=== PATIENT | male | born 1935 | race Caucasian/White ===

== ENCOUNTER 2018-07-03 23:08 | Observation (INO) | payer OTHER ==
[2018-07-03] MEDS ORDERED: NS 1,000 ML IV ONE (23:16)
--- NOTE | 2018-07-03 23:20 | EDPHY ---
H & P Time Seen by Provider: 07/03/18 23:19 HPI/ROS: HPI CHIEF COMPLAINT: Syncope, confusion HISTORY OF PRESENT ILLNESS: Very pleasant 82-year-old male, presents emergency room from his private residence after he may have had a syncopal episode tonight. Patient was on the toilet and called for help when his arrived at the bathroom he was on the ground. This was unwitnessed fall. The patient is unsure exactly what happened. Patient arrived to the emergency room he is alert and orient x1. He cannot tell me his full date or his full address. Unclear at this time of this is his baseline is no family is here. Is reported by EMS that he has been having some recent increase in falls. Patient arrives emergency room without complaint. Denies chest pain or shortness of breath. Past Medical History: Spinal stenosis, hypertension Past Surgical History: No recent surgery Social History: Lives locally private residence with . Family History: Noncontributory ROS REVIEW OF SYSTEMS: Limited due to patient's mental state at this time. Exam Constitutional confused, elderly, nontoxic, triage nursing summary reviewed, vital signs reviewed, awake/alert. Eyes normal conjunctivae and sclera, EOMI, PERRLA. HENT head and neck exam no evidence of trauma. normal inspection, atraumatic, moist mucus membranes, no epistaxis, neck supple/ no meningismus, no raccoon eyes. Respiratory clear to auscultation bilaterally, normal breath sounds, no respiratory distress, no wheezing. Cardiovascular rate normal, regular rhythm, no murmur, no edema, distal pulses normal. Gastrointestinal soft, non-tender, no rebound, no guarding, normal bowel sounds, no distension, no pulsatile mass. Genitourinary no CVA tenderness. Musculoskeletal no midline vertebral tenderness, full range of motion, no calf swelling, no tenderness of extremities, no meningismus, good pulses, neurovascularly intact. Skin pink, warm, & dry, no rash, skin atraumatic. Neurologic awake and alert however oriented x1. moves all 4 extremities equally, motor intact, sensory intact, CN II-XII intact, normal cerebellar, normal vision, normal speech. Psychiatric normal mood/affect. Heme/Lymph/Immune no lymphadenopathy. Differential Diagnosis: Includes but is not limited to in a particular order syncope, dehydration, electrolyte disturbance, ACS, subdural, intracranial bleed , CVA Medical Decision Making: Plan for this patient IV establishment IV fluid bolus , check orthostatics, EKG, chest x-ray, CT scan of the head, and re-evaluate. Re-evaluation: EKG interpretation by me on record in [employer] system. Impression time of EKG 2319, sinus rhythm rate of [address] scan head without contrast negative for bleed atrophy present. Chest x-ray shows haziness in bilateral lower lobes. However the patient does not have any pneumonia symptoms. No fever no hypoxia no cough. Due to the confusion, and unwitnessed potential syncopal event will admit to the hospitalist service. Patient agrees for admission. agrees for admission. Possible cognitive decline/dementia. Spoke with Dr. Richardson agrees to admit Source: Patient, EMS Constitutional: Initial Vital Signs Temperature (C) 36.6 C 07/03/18 23:18 Heart Rate 63 07/03/18 23:18 Respiratory Rate 16 07/03/18 23:18 Blood Pressure 146/104 H 07/03/18 23:18 O2 Sat (%) 96 07/03/18 23:18 O2 Delivery Mode Room Air Allergies/Adverse Reactions: No Known Allergies Allergy (Unverified 07/03/18 23:17) Home Medications: Medication Instructions Recorded Levothyroxine [Synthroid 100 mcg 100 mcg PO DAILY06 07/03/18 (*)] amLODIPine BESYLATE [Norvasc 5 mg 5 mg PO DAILY 07/03/18 (*)] Medical Decision Making - Data Points Laboratory Results: Laboratory Results 07/03/18 23:12 07/03/18 23:10 Medications Given: Discontinued Medications Enoxaparin Sodium (Lovenox) 40 mg SC DAILY [facility] Stop: 12/31/18 08:59 Last Admin: 07/04/18 09:39 Dose: 40 mg Sodium Chloride (Ns) 1,000 mls @ 0 mls/hr IV EDNOW ONE; Wide Open PRN Reason: Protocol Stop: 07/03/18 23:17 Last Admin: 07/03/18 23:44 Dose: 1,000 mls Sodium Chloride (Ns) 1,000 mls @ 75 mls/hr IV CONT RABIA Stop: 12/31/18 00:44 Last Admin: 07/04/18 05:37 Dose: 1,000 mls Point of Care Test Results: Chemistry 07/03/18 23:17 POC Troponin I 0.00 ng/mL ng/mL (0.00-0.08) Departure - Departure Disposition: [facility] Inpatient Acute Clinical Impression: Dehydration, Syncope Condition: Good
[2018-07-03 23:22] LABS: PLATELET COUNT 315 10^3/uL (150-400)
[2018-07-04 00:04] LABS: INR 0.95 (0.83-1.16); PROTIME(PATIENT) 12.9 SEC (12.0-15.0)
[2018-07-04] MEDS ORDERED: ONDANSETRON DISINTEGRATING 4 MG TAB PO PRN (00:32)
[2018-07-04] MEDS ORDERED: ACETAMINOPHEN 325 MG TAB PO PRN (00:32)
[2018-07-04] MEDS ORDERED: ONDANSETRON 4 MG/2 ML VIAL IVP PRN (00:32)
[2018-07-04] MEDS ORDERED: NS 1,000 ML IV SCH (00:45)
--- NOTE | 2018-07-04 00:59 | PDGENHP ---
History and Physical - Chief Complaint Syncope - History of Present Illness Source-a very pleasant 82-year-old gentleman with past medical history significant for HTN, spinal stenosis, hypothyroidism who presents emergency department via EMS this evening following a syncopal episode in the bathroom. Patient reports that he was trying to get up off the toilet felt a little bit lightheaded and then everything went black. He was on the ground unable to get up. He was crying out for help in his got out of bed and found the patient on the ground confused and slightly wright in color. She was unable to help the patient get up and so EMS was called. No witnessed seizure-type activity. No no urinary incontinence. Patient continued to have some confusion. History Information - Allergies/Home Medication List Allergies/Adverse Reactions: No Known Allergies Allergy (Unverified 07/03/18 23:17) Home Medications: Synthroid 07/03/18 [Last Taken Unknown] amLODIPine BESYLATE 07/03/18 [Last Taken Unknown] I have personally reviewed and updated: family history, medical history, social history, surgical history - Past Medical History Additional medical history: Benign essential HTN, spinal stenosis, hypothyroidism, progressive memory deficit (reported to ED provider by family.) - Surgical History Additional surgical history: Colonoscopy, tonsillectomy/adenoidectomy. - Family History Additional family history: Dementia, emphysema - Social History Smoking Status: Never smoked Alcohol Use: None Drug Use: None Additional social history: Patient is for almost 60 years. Lives with his in current [place] home for the last 30 years. Cor status-full. Review of Systems Review of Systems: ROS: 10pt was reviewed & negative except for what was stated in HPI & below Constitutional: Reports: no symptoms. Denies: chills, fever EENMT: Reports: other (Wears glasses. No acute changes in vision. Patient reports he occasionally chokes on food but nothing recently.). Denies: blurred vision, sore throat Cardiac: Reports: no symptoms Respiratory: Reports: no symptoms. Denies: cough, shortness of breath Gastrointestinal: Reports: no symptoms Genitourinary: Reports: other (Nocturia. The patient reports occasional incomplete bladder emptying.) Muscolosketal: Reports: back pain, joint pain (Knees) Skin: Reports: no symptoms Neurological: Reports: tingling (Bilateral lower feet), weakness (Generalized) . Denies: emotional problems, headache, tremors Hematologic/Lymphatic: Reports: no symptoms Physical Exam Physical Exam: Selected Entries 07/03/18 07/03/18 23:18 23:22 Blood Pressure Automatic Method Heart Rate 63 Heart Rate [ 63 Sitting] Heart Rate [ 78 Standing] Heart Rate [ 62 Supine] Respiratory 16 Rate O2 Sat (%) 96 Temperature (C) 36.6 C Blood Pressure 146/104 H Blood Pressure 146/104 H [Sitting] Blood Pressure 112/73 [Standing] Blood Pressure 126/66 H [Supine] Mean Arterial 118 H Pressure (MAP) O2 Delivery Room Air Mode Blood Pressure Right Source [Sitting Upper ] Arm Blood Pressure Right Source [ Upper Standing] Arm Blood Pressure Left Source [Supine] Right Upper Arm Temperature Oral Source Heart Rate Automatic Source [Sitting ] Heart Rate Automatic Source [ Standing] Heart Rate Automatic Source [Supine] Temp Pulse Resp BP Pulse Ox 36.6 C 69 18 162/91 H 95 07/03/18 23:18 07/04/18 00:00 07/04/18 00:00 07/04/18 00:00 07/04/18 00:00 Constitutional: no apparent distress, appears nourished, obese, other (NAD. Pleasant elderly frail-appearing gentleman is sitting in [facility].) Eyes: PERRL, anicteric sclera, EOMI, No scleral injection Ears, Nose, Mouth, Throat: moist mucous membranes, other (No nasal discharge.), No poor dentition Cardiovascular: regular rate and rhythym, no murmur, rub, or gallop, edema (1+ pretibial pitting edema bilateral lower extremities.), No tachycardia Peripheral Pulses: 1+: dorsalis-pedis (R), dorsalis-pedis (L) Respiratory: no respiratory distress, no rales or rhonchi, clear to auscultation , No expiratory wheeze, No inspiratory crackles Gastrointestinal: normoactive bowel sounds, soft, non-tender abdomen, no palpable masses, other (Obese abdomen), No distension Genitourinary: no bladder tenderness, No garcia in urethra Skin: warm, normal color, no rashes or abrasions, No rash Musculoskeletal: full muscle strength, no muscle tenderness, generalized weakness (Patient initially was some difficulty sitting up. Requires use of side rails.) Neurologic: AAOx3, sensation intact bilaterally, CN II-XII Intact, other (He moves all extremities. Cerebellar testing intact.), No facial droop Psychiatric: interacting appropriately, not anxious, not encephalopathic, thought process linear, poor memory Lab Data & Imaging Review 07/03/18 23:12 07/03/18 23:10 WBC 11.61 10^3/uL (3.80-9.50) H 07/03/18 23:12 RBC 4.54 10^6/uL (4.40-6.38) 07/03/18 23:12 Hgb 16.1 g/dL (13.7-17.5) 07/03/18 23:12 Hct 44.8 % (40.0-51.0) 07/03/18 23:12 MCV 98.7 fL (81.5-99.8) 07/03/18 23:12 MCH 35.5 pg (27.9-34.1) H 07/03/18 23:12 MCHC 35.9 g/dL (32.4-36.7) 07/03/18 23:12 RDW 11.6 % (11.5-15.2) 07/03/18 23:12 Plt Count 315 10^3/uL (150-400) 07/03/18 23:12 MPV 10.1 fL (8.7-11.7) 07/03/18 23:12 Neut % (Auto) 79.0 % (39.3-74.2) H 07/03/18 23:12 Lymph % (Auto) 9.5 % (15.0-45.0) L 07/03/18 23:12 [place] % (Auto) 9.6 % (4.5-13.0) 07/03/18 23:12 Eos % (Auto) 1.4 % (0.6-7.6) 07/03/18 23:12 Baso % (Auto) 0.2 % (0.3-1.7) L 07/03/18 23:12 Nucleat RBC Rel Count 0.0 % (0.0-0.2) 07/03/18 23:12 Absolute Neuts (auto) 9.18 10^3/uL (1.70-6.50) H 07/03/18 23:12 Absolute Lymphs (auto) 1.10 10^3/uL (1.00-3.00) 07/03/18 23:12 Absolute Monos (auto) 1.11 10^3/uL (0.30-0.80) H 07/03/18 23:12 Absolute Eos (auto) 0.16 10^3/uL (0.03-0.40) 07/03/18 23:12 Absolute Basos (auto) 0.02 10^3/uL (0.02-0.10) 07/03/18 23:12 Absolute Nucleated RBC 0.00 10^3/uL (0-0.01) 07/03/18 23:12 Immature Gran % 0.3 % (0.0-1.1) 07/03/18 23:12 Immature Gran # 0.04 10^3/uL (0.00-0.10) 07/03/18 23:12 PT 12.9 SEC (12.0-15.0) 07/03/18 23:50 INR 0.95 (0.83-1.16) 07/03/18 23:50 APTT 25.8 SEC (23.0-38.0) 07/03/18 23:50 Sodium 131 mEq/L (135-145) L 07/03/18 23:10 Potassium 4.5 mEq/L (3.5-5.2) 07/03/18 23:10 Chloride 99 mEq/L (97-110) 07/03/18 23:10 Carbon Dioxide 20 mEq/l (22-31) L 07/03/18 23:10 Anion Gap 12 mEq/L (6-14) 07/03/18 23:10 BUN 24 mg/dL (7-23) H 07/03/18 23:10 Creatinine 1.1 mg/dL (0.7-1.3) 07/03/18 23:10 Estimated GFR > 60 07/03/18 23:10 Glucose 106 mg/dL (70-100) H 07/03/18 23:10 Calcium 9.5 mg/dL (8.5-10.4) 07/03/18 23:10 Magnesium 2.2 mg/dL (1.6-2.3) 07/03/18 23:10 Total Bilirubin 0.5 mg/dL (0.1-1.4) 07/03/18 23:10 Conjugated Bilirubin 0.3 mg/dL (0.0-0.5) 07/03/18 23:10 Unconjugated Bilirubin 0.2 mg/dL (0.0-1.1) 07/03/18 23:10 AST 23 IU/L (17-59) 07/03/18 23:10 ALT 22 IU/L (21-72) 07/03/18 23:10 Alkaline Phosphatase 78 IU/L (38-126) 07/03/18 23:10 POC Troponin I 0.00 ng/mL (0.00-0.08) 07/03/18 23:17 NT-Pro-B Natriuret Pep 305 pg/mL (0-450) 07/03/18 23:10 Total Protein 7.3 g/dL (6.3-8.2) 07/03/18 23:10 Albumin 4.3 g/dL (3.5-5.0) 07/03/18 23:10 Lipase 72 IU/L (23-300) 07/03/18 23:10 Imaging Review: Chest, One View Portable at 2329 hours History: Chest Pain , cough, altered mental status. Comparison: None. Findings: Cardiac silhouette is normal in size. Reticular nodular opacities bilateral lower lobes which may present acute pneumonia. No pleural effusion or pneumothorax. Impression: 1. Bilateral lower lobe reticular nodular opacities which may represent acute pneumonia or interstitial lung disease. 2. No pleural effusion or pneumothorax. 3. No congestive heart failure. Findings and recommendations discussed with Emergency Department physician, Guilherme Sullivan MD at 23:53 hour, 07/03/2018. Final report concurs with initial preliminary interpretation. Dictated By: Yordy Lopez CT Brain (Without Contrast) at 2323 hours History: Altered mental status, syncope recent fall , dementia. Comparison: None. Technique: Axial computed tomographic images of the brain without contrast. Dose reduction techniques were utilized. Multiplanar reconstructions including 3-D reconstructions performed and evaluated on [employer] workstation in order to better evaluate for occult calvarial or facial bone fractures. Findings: Ventricles, cisterns, and sulci are widened consistent with atrophy. No hydrocephalus, midline shift/herniation, or epidural/subdural hematomas. No acute intraparenchymal hemorrhage or mass effect. Cerebrovascular atherosclerosis. Hypodensities in the white matter of bilateral cerebral hemispheres. Bone windows demonstrate no displaced fractures. Paranasal sinuses and mastoid air cells are clear. No skull fracture. Impression: 1. Moderate atrophy. 2. No acute hemorrhage, hydrocephalus, or mass effect. 3. Cerebrovascular atherosclerosis. 4. No definite acute infarct. 5. Moderate microvascular ischemic gliosis. 6. Consider MRI of the brain, if there is continued clinical concern. Findings and recommendations discussed with Emergency Department physician, Guilherme Sullivan MD at 23:50 hour, 07/03/2018. Final report concurs with initial preliminary interpretation. Dictated By: Yordy Lopez Visualized and Interpreted Chest x-ray results: Yes Visualized and Interpreted EKG results: Yes EKG additional interpertation: NSR 60s. nonspecific IVCD, LAD, q waves anteroseptal leads. QTc 443. no acute ST changes. Assessment & Plan Assessment: Pleasant 82-year-old gentleman with history of HTN, hypothyroidism presents emergency department today following an unwitnessed syncopal episode and confusion. # Syncope - patient initial orthostatic blood pressures in the emergency department do show a significant drop from sitting to standing without a significant rise in heart rate. Additionally patient was reported to have been on the toilet when his episode happened so differential including orthostatic hypotension vs. vasovagal response vs less likely acute CVA or seizures. Patient was initially confused even upon arrival to the emergency department. Per ED provider family has been reporting patient with some short-term memory deficits although patient denies. He was confused to his all wrist where he lived for the last 30 years however at this time he is recollection of this detail his return. He is oriented to person place and month but not year or date. He is oriented to presence current president. Patient denies any focal deficits and none elicited on exam. Will plan to monitor patient with neuro checks with with vital signs. MRI in the morning. # Confusion - resolving. Patient continues to have some memory deficits but improved from his arrival. Patient does have a mildly declined sodium level however review of his previous laboratory studies indicates that patient is pretty close to his baseline. Will monitor BMPs closely. # Bilateral lobe reticular nodular opacities - pneumonia verses ILD. Patient denies any symptoms at this time including no cough or shortness of breath. He is afebrile. White count is within normal limits. Will plan to monitor patient clinically at this time. Incentive spirometry. If patient should develop fever then will plan to initiate antibiotic therapy. # Hyponatremia-chronic as noted above. IV fluids overnight. Repeat a.m. BMP. Patient is not on any diuretic therapy for his blood pressure this time. # Benign essential hypertension - blood pressures initially slightly elevated which have improved since admission. Resume patient's amlodipine in the morning when med rec available for reconciliation. # Hypothyroid and check a TSH. Continue patient's levothyroxine supplementation. FEN - IV fluids for gentle hydration overnight. Advance diet as tolerated. Electrolytes adequate this time replacement as noted above. PPX-SCDs. Lovenox if patient should stay additional day. Cor status-full. Disposition-patient admitted observation status on the PCU floor for close cardiac back monitoring with intermittent neuro checks. At this time pending additional studies as noted above anticipate less than 3 midnight stay.
[2018-07-04] MEDS ORDERED: hydrALAZINE 10 MG TAB PO PRN (02:22)
[2018-07-04 04:36] LABS: PLATELET COUNT 268 10^3/uL (150-400)
--- NOTE | 2018-07-04 08:56 | CPEKG ---
Test Reason : OPEN Blood Pressure : / mmHG Vent. Rate : 061 BPM Atrial Rate : 061 BPM P-R Int : 177 ms QRS Dur : 119 ms QT Int : 439 ms P-R-T Axes : 029 -42 052 degrees QTc Int : 443 ms Sinus rhythm Nonspecific IVCD with LAD Probable anteroseptal infarct, old Confirmed by Guilherme Sullivan ([id number]) on 07/04/2018 8:55:58 AM Referred By: Confirmed By:Guilherme Sullivan
[2018-07-04] MEDS ORDERED: ENOXAPARIN 40 MG/0.4 ML SYR SC SCH (09:00)
[2018-07-04 15:28] VITALS: BP 137/64
--- NOTE | 2018-07-04 16:42 | HOSPPROG ---
Hospitalist Progress Note Assessment/Plan: DIAGNOSES: * Syncope, ? vagal vs other cause * no sign of arrythmia or other cardiac issues so far * gait instability * The patient was unable to get up off the floor after his syncope at home, and he has had a fairly unstable gait here and does not appear to be safe on his feet at this time * Unclear how chronic this issue is * acute confusional state, metabolic encephalopathy * hypothyroidism appears undertreated at this time * hyponatremia mild and improving PLANS: SUBJECTIVE: OBJECTIVE Vitals reviewed: Marketing Services Coordinator, my review: Exam: alert oriented skin warm dry color ok resps not labored lungs clear BSs heart regular abd soft nondistended nontender, bowel sounds present limbs warm, no edema iv site ok Laboratory data: Some improvement in white blood cell count this morning Objective: Vital Signs Temp Pulse Resp BP Pulse Ox 36.6 C 65 17 137/64 H 92 07/04/18 12:00 07/04/18 15:26 07/04/18 12:00 07/04/18 15:26 07/04/18 12:00 Laboratory Results 07/04/18 03:24 07/04/18 03:24 07/03/18 07/04/18 07/05/18 06:59 06:59 06:59 Intake Total 120 480 Output Total 1225 650 Balance -1105 -170 PT 12.9 SEC (12.0-15.0) 07/03/18 23:50 INR 0.95 (0.83-1.16) 07/03/18 23:50
--- NOTE | 2018-07-04 17:09 | PDDCSUM ---
Discharge Summary Discharge Summary: DISCHARGE DIAGNOSES: * syncope at home without recurrence * mild dehydration * gait instability, no recent falls * undertreated hypothyroidism * cerebrovascular atherosclerosis noted incidentally on CT scan of the head PROCEDURES: CT scan of head HOSPITAL COURSE SUMMARY: PENDING TEST RESULTS: None MEDICATION CHANGES: None FOLLOW-UP PLAN: With Dr. Palm in primary care clinic in the next 1-2 weeks In addition to following up for syncope and gait instability, repeat TSH and follow-up of his thyroid replacement therapy will be required He will have cardiac EKG monitoring at home through [facility] and this is been set up with the cardiology team here Greater than 35 minutes bedside and care coordination time today
--- NOTE | 2018-07-04 17:13 | PDIAF ---
- Diagnosis Diagnosis: syncope, acute confusion, hypothyroidism Code Status: Full Code - Medication Management Discharge Medications: electronically signed and located in the Home Medication List. - Orders Services needed: Home Care, Registered Nurse, Physical Therapy Home Care Face to Face: I certify that this patient was under my care and that I had the required [id number] encounter meeting the encounter requirements on the discharge day. My findings support the fact that the patient is homebound as defined in Home Care Face to Face Continued: CMS Chapter 7 Medicare Benefits Manual 30.1.1 , The condition of the patient is such that there exists a normal inability to leave home and consequently, leaving home would require a considerable and taxing effort. Diet Recommendation: no restrictions on diet Diet Texture: Regular Texture Diet Equipment: walker Additional Instructions: Make an appointment with Dr Palm in the next 1-2 weeks You will need follow-up for her balance issues and for reassessing her thyroid treatment You should hear from [facility] regarding setting up home EKG monitoring. If you do not hear from them by Friday call [phone] Keep well hydrated Usual walker at all times for walking - Follow Up Care Current Providers and Referrals: Patient,NotPresent [Unknown] - As per Instructions
--- NOTE | 2018-07-04 17:40 | ASMTLACE ---
LACE Length of stay for Answers: Less than 1 day current admission Acuity / Level of Answers: No Care: Did the patient have an inpatient admission? Comorbidities - select Answers: Other Notes: Benign essential all that apply HTN, hypothyroid, memor y changes # of Emergency department Answers: 1-2 visits in the last 6 months Score: 2 Date Signed: 07/04/2018 05:40 PM Electronically Signed By:Meaghan Asher RN
--- NOTE | 2018-07-04 18:33 | ASMTCMCOM ---
CM Note CM Note Notes: Pt admitted for a syncopal event at home, mild dehydration, gait instability, untreated hypothyroidism, memory changes. History includes benign essential HTN, spinal stenosis, hypothyroidism, progressive memory deficits. Pt is and lives with his . Per Dr. Rubio, pt to discharge home with [facility] (RN/PT services) today. Call placed to Adina at [facility]. Per Adina, unable to accept secondary to [facility] Advantage plan. Call placed to Marie, with [facility]. Per Marie, able to accept for start of care on Friday07/06/18. Referral sent via [employer]; confirmed receipt with Marie. Attempted to meet with pt and pt's to discuss discharge plan. Pt left unit prior to speaking with CM. Attempted to call pt multiple times at home following discharge; left voice message for pt to follow up with CM on Friday07/05/18. Attempted to call pt's cell phone; no answer. Unable to pt's confirm address and phone. CM will attempt to reach pt again on Friday. YAZMIN and KELLY not signed, pt admission less than 24 hrs. Pt to follow up as directed. CM available for any further issues or concerns. Discharge Plan: Home with [facility] (RN/PT services) Date Signed: 07/04/2018 06:33 PM Electronically Signed By:Meaghan Asher RN
[2018-07-05] MEDS ORDERED: LEVOTHYROXINE 100 MCG TAB PO SCH (06:00)
--- NOTE | 2018-07-06 14:20 | ASDISCHSUM ---
Discharge Information Plan Status:Home with Home Health Medically Cleared to Leave:07/03/2018 Discharge Date:07/04/2018 06:02 PM CM D/C Disposition:Home Health Service ADT D/C Disposition:Home Health Service Projected Discharge Date:07/04/2018 11:00 AM Transportation at D/C:Family Discharge Delay Reason: Follow-Up Date:07/04/2018 11:00 AM Discharge Slot:2 - 12:01 pm - 18:00 pm Final Diagnosis:Dehydration, syncope, gait instability, memory changes, untreated hypothyroidsim Placement Information Referral Type:*Home Health Care Services Referral ID:[id number] Provider Name:[facility] Address 1:[address] Address 2: [facility]:[place] Selection Factors:Patient/Family Choice State:[place] Patient Contact Information Contact Name:RAQUEL Relationship: Address:[address] [facility] Work Phone: City:[place] Alternate Phone: [facility]/Zip Code:[place] [address] Email: Financial Information Financial Class:Medicare Advantage Plans Primary Plan Desc:ALOSKO Primary Plan Number:[id number] Secondary Plan Desc: Secondary Plan Number: Assessment Information LACE LACE Length of stay for Answers: Less than 1 day current admission Acuity / Level of Answers: No Care: Did the patient have an inpatient admission? Comorbidities - select Answers: Other Notes: Benign essential all that apply HTN, hypothyroid, memor y changes # of Emergency department Answers: 1-2 visits in the last 6 months Score: 2 Date Signed: 07/04/2018 05:40 PM Electronically Signed By:Meaghan Asher RN [facility] CM Progress Note CM Note CM Note Notes: Pt admitted for a syncopal event at home, mild dehydration, gait instability, untreated hypothyroidism, memory changes. History includes benign essential HTN, spinal stenosis, hypothyroidism, progressive memory deficits. Pt is and lives with his . Per Dr. Rubio, pt to discharge home with [facility] (RN/PT services) today. Call placed to Adina at [facility]. Per Adina, unable to accept secondary to [facility] Advantage plan. Call placed to Marie, with [facility]. Per Marie, able to accept for start of care on Friday07/06/18. Referral sent via [employer]; confirmed receipt with Marie. Attempted to meet with pt and pt's to discuss discharge plan. Pt left unit prior to speaking with CM. Attempted to call pt multiple times at home following discharge; left voice message for pt to follow up with CM on Friday07/05/18. Attempted to call pt's cell phone; no answer. Unable to pt's confirm address and phone. CM will attempt to reach pt again on Friday. YAZMIN and KELLY not signed, pt admission less than 24 hrs. Pt to follow up as directed. CM available for any further issues or concerns. Discharge Plan: Home with [facility] (RN/PT services) Date Signed: 07/04/2018 06:33 PM Electronically Signed By:Meaghan Asher RN Intervention Information
== END 2018-07-04 18:02 | disposition home health service (06) ==
LOC: EDUNIT# → F2W 07-04 01:26
PROVIDERS: ADMIT Family Medicine; ATTEND Internal Medicine
DX: R55 Syncope and collapse (principal); R41.0 Disorientation, unspecified; R41.3 Other amnesia; E03.9 Hypothyroidism, unspecified; E87.1 Hypo-osmolality and hyponatremia; E86.0 Dehydration; R26.9 Unspecified abnormalities of gait and mobility; R91.8 Other nonspecific abnormal finding of lung field; I67.2 Cerebral atherosclerosis; M48.00 Spinal stenosis, site unspecified; I10 Essential (primary) hypertension
CPT/HCPCS: 70450; 71045; 92523; 93005; 96360; 96372; 97116; 97162; 99285; G0378; G8978; G8979; G9165; G9166; J1650; 84484-PO

== ENCOUNTER 2018-07-23 12:34 | Emergency (ER) | payer OTHER ==
--- NOTE | 2018-07-23 12:45 | EDPHY ---
H & P Time Seen by Provider: 07/23/18 12:37 HPI/ROS: CHIEF COMPLAINT: Heart rate 40 HISTORY OF PRESENT ILLNESS: Patient was admitted earlier in June for syncope. He was discharged eventually got a surface heart monitor by a company called [employer]. He is brought in today by EMS because at around 10: 30 a.m. Approximately this morning he had his vital signs taken by his physical therapist and was told his pulse was 40. The patient did not have feeling of chest pain or shortness of breath or lightheadedness or dizziness or any symptoms, no syncope since his hospital discharge. He says he feels fine. REVIEW OF SYSTEMS: Eye: no change in vision ENT: no sore throat Cardiac: no chest pain or syncope Pulmonary: no cough or SOB Abdomen: no vomiting, diarrhea, abdominal pain Musculoskeletal: no back pain Skin: no rash Neuro: no headache Constitutional: no fever : no urinary symptoms A comprehensive 10 point review of systems is otherwise negative aside from elements mentioned in the history of present illness. PAST MEDICAL HISTORY: History and physical dated 07/04/2018 personally reviewed includes hypertension, spinal stenosis, hypothyroid. Some memory deficit. Social history: , primary care is Dr. Palm. General Appearance: Alert and conversant, cooperative. Eyes: No scleral icterus. ENT, Mouth: Normal mucous membranes. Respiratory: Normal respiratory effort, breath sounds equal, lungs are clear to auscultation. Cardiovascular: Regular rate and rhythm. Gastrointestinal: Abdomen is soft and non tender. Neurological: Alert, face symmetric, normal motor and sensory in extremities. Skin: Warm and dry, no rashes. Musculoskeletal: No peripheral edema. Psychiatric: Not agitated. Emergency Department course/MDM: Attempt made by staff to obtain telemetry data from the time the patient was having his symptoms today. Currently asymptomatic. 1425: Telemetry data sent to us only includes bigeminy at a rate of about 70 at 10:29 a.m. Mountain time. Patient did not have heart block or other malignant dysrhythmia on monitoring here. Discussed with Dr. Alberto Schreiber for Dr. Yashira Palm, agrees with discharge given nothing dangerous seen on the telemetry strip sent to us by his monitor company. Total of 4 pages were sent. Patient would like to go home which I think is reasonable. Smoking Status: Never smoked Constitutional: Initial Vital Signs Temperature (C) 36.8 C 01/03/19 13:13 Heart Rate 78 07/23/18 13:13 Respiratory Rate 16 07/23/18 13:13 Blood Pressure 138/72 H 07/23/18 13:13 O2 Sat (%) 97 07/23/18 13:13 O2 Delivery Mode Room Air Allergies/Adverse Reactions: No Known Allergies Allergy (Unverified 07/03/18 23:17) Home Medications: Medication Instructions Recorded Levothyroxine [Synthroid 100 mcg 100 mcg PO DAILY06 07/03/18 (*)] amLODIPine BESYLATE [Norvasc 5 mg 5 mg PO DAILY 07/03/18 (*)] Medical Decision Making - Diagnostics EKG Interpretation: 12-lead EKG interpreted by me; official reading is in computer system. My interpretation is sinus rhythm with nonspecific conduction delay, left axis, rate 73 - Data Points Laboratory Results: Laboratory Results 07/23/18 12:40 07/23/18 12:40 07/23/18 07/23/18 07/23/18 12:46 12:40 12:40 WBC 7.55 10^3/uL 10^3/uL (3.80-9.50) RBC 4.74 10^6/uL 10^6/uL (4.40-6.38) Hgb 16.5 g/dL g/dL (13.7-17.5) Hct 47.3 % % (40.0-51.0) MCV 99.8 fL fL (81.5-99.8) MCH 34.8 pg H pg (27.9-34.1) MCHC 34.9 g/dL g/dL (32.4-36.7) RDW 11.8 % % (11.5-15.2) Plt Count 326 10^3/uL 10^3/uL (150-400) MPV 10.1 fL fL (8.7-11.7) Neut % (Auto) 72.3 % % (39.3-74.2) Lymph % (Auto) 13.8 % L % (15.0-45.0) [place] % (Auto) 11.9 % % (4.5-13.0) Eos % (Auto) 1.2 % % (0.6-7.6) Baso % (Auto) 0.4 % % (0.3-1.7) Nucleat RBC Rel Count 0.0 % % (0.0-0.2) Absolute Neuts (auto) 5.46 10^3/uL 10^3/uL (1.70-6.50) Absolute Lymphs (auto) 1.04 10^3/uL 10^3/uL (1.00-3.00) Absolute Monos (auto) 0.90 10^3/uL H 10^3/uL (0.30-0.80) Absolute Eos (auto) 0.09 10^3/uL 10^3/uL (0.03-0.40) Absolute Basos (auto) 0.03 10^3/uL 10^3/uL (0.02-0.10) Absolute Nucleated RBC 0.00 10^3/uL 10^3/uL (0-0.01) Immature Gran % 0.4 % % (0.0-1.1) Immature Gran # 0.03 10^3/uL 10^3/uL (0.00-0.10) Sodium 133 mEq/L L mEq/L (135-145) Potassium 4.4 mEq/L mEq/L (3.5-5.2) Chloride 97 mEq/L mEq/L (97-110) Carbon Dioxide 25 mEq/l mEq/l (22-31) Anion Gap 11 mEq/L mEq/L (6-14) BUN 19 mg/dL mg/dL (7-23) Creatinine 1.0 mg/dL mg/dL (0.7-1.3) Estimated GFR > 60 Glucose 91 mg/dL mg/dL (70-100) Calcium 10.1 mg/dL mg/dL (8.5-10.4) POC Troponin I 0.01 ng/mL ng/mL (0.00-0.08) Point of Care Test Results: Chemistry 07/23/18 12:46 POC Troponin I 0.01 ng/mL ng/mL (0.00-0.08) Departure - Departure Disposition: Home, Routine, Self-Care Clinical Impression: possible bradycardia Condition: Good Instructions: Bradycardia (ED) Referrals: Yashira Palm MD [Medical Doctor] - As per Instructions
[2018-07-23 12:50] LABS: PLATELET COUNT 326 10^3/uL (150-400)
--- NOTE | 2018-07-23 13:07 | CPEKG ---
Test Reason : OPEN Blood Pressure : / mmHG Vent. Rate : 073 BPM Atrial Rate : 073 BPM P-R Int : 171 ms QRS Dur : 116 ms QT Int : 398 ms P-R-T Axes : 033 -42 069 degrees QTc Int : 439 ms Sinus rhythm Nonspecific IVCD with LAD Confirmed by Jamaal Rojas ([id number]) on 07/23/2018 1:06:57 PM Referred By: Confirmed By:Jamaal Rojas
[2018-07-23 14:28] VITALS: BP 161/67
== END 2018-07-23 14:27 | disposition home or self-care (01) ==
LOC: EDUNIT#
DX: R00.1 Bradycardia, unspecified (principal)
CPT/HCPCS: 84484-ER